=== PATIENT | male | born 1975 | race Caucasian/White ===

== ENCOUNTER 2022-01-21 12:10 | Emergency (ER) | payer OTHER, MEDICAID, SELFPAY ==
[2022-01-21 12:16] VITALS: BP 175/97; PULSE 65; RESP 18; TEMP 36.8; O2SAT 97; BMI 25.0
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
--- NOTE | 2022-01-21 13:30 | PC.NURSE ---
C Collar removed per Dr Lopez
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
[2022-01-21 14:25] VITALS: BP 155/82; PULSE 66; RESP 16; O2SAT 97
== END 2022-01-21 14:22 | disposition home or self-care (01) ==
PROVIDERS: Emergency Provider Physician Assistant; PCP Family Medicine
DX: S13.4XXA Sprain of ligaments of cervical spine, initial encounter (principal); S16.1XXA Strain of muscle, fascia and tendon at neck level, initial encounter; G44.209 Tension-type headache, unspecified, not intractable; V89.2XXA Person injured in unspecified motor-vehicle accident, traffic, initial encounter
CPT/HCPCS: 72125; 99281; 99283